=== PATIENT | male | born 1990 | race Two or more races ===

== ENCOUNTER 2020-09-09 15:34 | Inpatient (IN) | payer MEDICAID ==
[~2020-09-09] VITALS: Ht 167.6 cm; Wt 96.4 kg
[2020-09-09 16:33] LABS: MEAN CORPUSCULAR HEMOGLOBIN 29.9 pg (27.5-34.5); MEAN CORPUSCULAR HGB CONC 33.6 g/dL (33.2-36.2); MEAN PLATELET VOLUME 7.9 fL (7.4-10.4); PLATELET COUNT 294 x10^3/uL (130-400); RED BLOOD COUNT 4.99 x10^6/uL (4.38-5.82)
--- NOTE | 2020-09-09 16:38 | NUR ---
PT AWOKE WITH ABDOMINAL PAIN THIS MORNING AND WENT TO HOSPITAL. ABNORMAL LABS OBTAINED FROM [facility]: WBC 37K, CREAT 2.3, KCL 6.9, CO2 6, GAP 26, GLUCOSE 165, LACTIC 12.4, UA KETONES, CT ABDOMEN=ONLY DISTENDED, NEGATIVE COVID. PT RECEIVED 4 LITERS IV BLUIDS, BICARB, CALCIUM, INSULING, ALBULTEROL.
--- NOTE | 2020-09-09 16:40 | NUR ---
PT ALSO RECEVED ZOSYN 3.375 AT [facility]
[2020-09-09 16:46] LABS: ALANINE AMINOTRANSFERASE 63 U/L (12-78); ALBUMIN 3.4 g/dL (3.4-5.0); ANION GAP 12 mmol/L (5-15); CALCIUM 7.9 mg/dL (8.5-10.1); CHLORIDE 106 mmol/L (98-107); CREATININE 1.82 mg/dL (0.7-1.3)
[2020-09-09 16:49] LABS: ALKALINE PHOSPHATASE 91 U/L (45-117); TOTAL PROTEIN 7.5 g/dL (6.4-8.2)
[2020-09-09 17:10] LABS: MD YES
[2020-09-09 17:31] LABS: BAND#(MANUAL) 1.54 x10^3/uL; BANDS%(MANUAL) 6 % (0-7); LYMPHS% (MANUAL) 7 % (22-44); MONOS#(MANUAL) 1.54 x10^3/uL (0.3-2.7); MONOS% (MANUAL) 6 % (2-9); SEG#(MANUAL) 20.82 x10^3/uL (1.8-6.8); SEGS% (MANUAL) 81 % (42-75)
[2020-09-09 17:32] LABS: <RBC MORPHOLOGY> NORMAL
[2020-09-09 17:34] LABS: <PLATELET ESTIMATE> ADEQUATE; <PLT MORPHOLOGY> NORMAL PLT MORPH
[2020-09-09] MEDS: SODIUM CHLORIDE 0.9% 1,000 ML IV SCH ×3 (17:38→22:54)
[2020-09-09 17:47] LABS: MICROSCOPIC AUTO
--- NOTE | 2020-09-09 17:50 | NUR ---
ON PT'S ARRIVAL 800 ML URINE REMOVED FROM EXISITING GALLEGOS COLLECTION BAG. AFTER EMPTYING 600 ML URINE THAT COLLECTED SINCE PT'S ARRIVAL, GALLEGOS REMOVED.
[2020-09-09] MEDS ORDERED: POLYETHYLENE GLYCOL 17 GM PACKET PO PRN (19:00)
[2020-09-09] MEDS ORDERED: ONDANSETRON 2MG/ML, 2ML IVPush PRN (19:00)
[2020-09-09] MEDS ORDERED: BISACODYL 10 MG SUPP PR PRN (19:00)
[2020-09-09] MEDS ORDERED: ACETAMINOPHEN 325 MG TABLET PO PRN (19:00)
[2020-09-09] MEDS ORDERED: PIPERACILLIN/TAZO/PMX 3.375GM 50 ML ONE ×2 (19:15→19:18)
[2020-09-09] MEDS ORDERED: VANCOMYCIN PER PHARMACY MC PRN (19:30)
[2020-09-09] MEDS: PIPERACILLIN/TAZO/PMX 3.375GM 50 ML IV SCH (19:45)
[2020-09-09] MEDS ORDERED: HEPARIN 5,000 UNITS/ML, 1ML ONE (19:51)
[2020-09-09] MEDS: HEPARIN 5,000 UNITS/ML, 1ML SQ SCH (19:57)
--- NOTE | 2020-09-09 20:15 | NUR ---
ABX HUNG AFTER BLOOD CULTURES. PT RESTING ABLE TO URINATE 400 ML POST GALLEGOS REMOVAL, NO OTHER NEEDS AT THIS TIME.
--- NOTE | 2020-09-09 21:24 | NUR ---
REPORT GIVEN TO BRANDON OVIEDO
[2020-09-09 21:49] VITALS: BP 136/90
[2020-09-09] MEDS ORDERED: PHARMACOKINETIC MONITORING MC PRN (22:30)
[2020-09-09] MEDS ORDERED: VANCOMYCIN 2,400 MG in SODIUM CHLORIDE 0.9% 500 ML IV ONE (22:30)
[2020-09-09] MEDS ORDERED: PHARMACOKINETIC CONSULTATION MC ONE (22:30)
[2020-09-09 23:10] LABS: TROPONIN I 0.102 ng/mL (0.000-0.045)
[2020-09-09] MEDS ORDERED: DIPHENHYDRAMINE 50 MG/ML, 1ML ONE (23:41)
[2020-09-10] MEDS ORDERED: DIPHENHYDRAMINE 50 MG/ML, 1ML IVPush ONE
[2020-09-10 02:58] VITALS: BP 106/64
[2020-09-10] MEDS: SODIUM CHLORIDE 0.9% 1,000 ML IV SCH ×5 (03:00→14:22)
[2020-09-10] MEDS: PIPERACILLIN/TAZO/PMX 3.375GM 50 ML IV SCH ×4 (03:18→20:19)
[2020-09-10] MEDS: HEPARIN 5,000 UNITS/ML, 1ML SQ SCH ×3 (03:55→20:19)
[2020-09-10 04:34] LABS: BASOPHILS % (AUTO) 1 % (0-1); EOSINOPHILS % (AUTO) 0 % (1-7); LYMPHOCYTES % (AUTO) 15 % (22-44); MEAN CORPUSCULAR HEMOGLOBIN 29.8 pg (27.5-34.5); MEAN CORPUSCULAR HGB CONC 34.2 g/dL (33.2-36.2); MEAN PLATELET VOLUME 7.9 fL (7.4-10.4); MONOCYTES % (AUTO) 6 % (2-9); NEUTROPHILS % (AUTO) 79 % (42-75); PLATELET COUNT 264 x10^3/uL (130-400); RED BLOOD COUNT 4.54 x10^6/uL (4.38-5.82); RED CELL DISTRIBUTION WIDTH 12.6 % (9.4-14.8)
[2020-09-10 04:40] LABS: ALANINE AMINOTRANSFERASE 47 U/L (12-78); ALBUMIN 2.9 g/dL (3.4-5.0); ANION GAP 7 mmol/L (5-15); CALCIUM 8.2 mg/dL (8.5-10.1); CHLORIDE 112 mmol/L (98-107); CREATININE 1.24 mg/dL (0.7-1.3)
[2020-09-10 04:44] LABS: ALKALINE PHOSPHATASE 75 U/L (45-117); TOTAL PROTEIN 6.7 g/dL (6.4-8.2); TROPONIN I 0.088 ng/mL (0.000-0.045)
[2020-09-10 05:26] LABS: MD SCAN
[2020-09-10 06:30] VITALS: BP 129/80
[2020-09-10] MEDS ORDERED: ACETAMINOPHEN 325 MG TABLET PO PRN (08:30)
[2020-09-10] MEDS ORDERED: POTASSIUM CHLORIDE 20 MEQ TAB.ER.PRT PO ONE (09:00)
[2020-09-10 09:19] VITALS: BP 121/77
[2020-09-10] MEDS: ASPIRIN 325 MG TABLET PO SCH (09:23)
[2020-09-10] MEDS: VANCOMYCIN 2,000 MG in SODIUM CHLORIDE 0.9% 500 ML IV SCH ×2 (11:31→23:44)
[2020-09-10 12:03] VITALS: BP 123/78
[2020-09-10 19:29] VITALS: BP 131/88
[2020-09-10] MEDS: ATORVASTATIN 40 MG TABLET PO SCH (20:18)
[2020-09-11 01:02] VITALS: BP 144/83
[2020-09-11] MEDS: PIPERACILLIN/TAZO/PMX 3.375GM 50 ML IV SCH (03:10)
[2020-09-11] MEDS: SODIUM CHLORIDE 0.9% 1,000 ML IV SCH ×2 (03:13→13:59)
[2020-09-11] MEDS: HEPARIN 5,000 UNITS/ML, 1ML SQ SCH ×3 (03:15→17:46)
[2020-09-11] MEDS: ASPIRIN 325 MG TABLET PO SCH (05:16)
[2020-09-11 05:30] LABS: BASOPHILS % (AUTO) 1 % (0-1); EOSINOPHILS % (AUTO) 7 % (1-7); LYMPHOCYTES % (AUTO) 29 % (22-44); MEAN CORPUSCULAR HEMOGLOBIN 30.1 pg (27.5-34.5); MEAN PLATELET VOLUME 8.5 fL (7.4-10.4); MONOCYTES % (AUTO) 8 % (2-9); NEUTROPHILS % (AUTO) 56 % (42-75); PLATELET COUNT 219 x10^3/uL (130-400); RED BLOOD COUNT 4.24 x10^6/uL (4.38-5.82); RED CELL DISTRIBUTION WIDTH 12.7 % (9.4-14.8)
[2020-09-11 05:39] LABS: MD NO
[2020-09-11 05:39] LABS: CHLORIDE 113 mmol/L (98-107)
[2020-09-11 05:50] LABS: ANION GAP 6 mmol/L (5-15); CALCIUM 8.1 mg/dL (8.5-10.1); CHOL/HDL RATIO 4.2; CHOLESTEROL, TOTAL 113 mg/dL (140-239); CREATININE 1.03 mg/dL (0.7-1.3); HDL CHOL % 24 % (26-37); HDL CHOLESTEROL (DIRECT) 27 mg/dL (40-60); LDL CHOLESTEROL,CALCULATED 27 mg/dL (54-169); TRIGLYCERIDES 293 mg/dL (50-200); VLDL CHOLESTEROL 59 mg/dL (0-25)
[2020-09-11] MEDS ORDERED: MAGNESIUM SULFATE PMX 2GM/50ML 50 ML IV ONE (07:30)
[2020-09-11 07:45] VITALS: BP 139/83
[2020-09-11] MEDS ORDERED: POTASSIUM CHLORIDE 20 MEQ TAB.ER.PRT PO ONE (09:00)
[2020-09-11] MEDS: CARVEDILOL 3.125 MG TABLET PO SCH ×2 (09:26→17:46)
[2020-09-11] MEDS: AMOXICILLIN 500 MG CAPSULE PO SCH ×2 (09:27→20:04)
[2020-09-11] MEDS: DOXYCYCLINE 100MG CAP PO SCH ×2 (09:27→20:04)
[2020-09-11 13:50] VITALS: BP 142/95
[2020-09-11 18:36] VITALS: BP 149/98
[2020-09-11] MEDS: ATORVASTATIN 40 MG TABLET PO SCH (20:04)
[2020-09-12 00:47] VITALS: BP 133/82
[2020-09-12] MEDS: HEPARIN 5,000 UNITS/ML, 1ML SQ SCH ×3 (03:00→18:39)
[2020-09-12] MEDS: SODIUM CHLORIDE 0.9% 1,000 ML IV SCH ×2 (05:49→13:35)
[2020-09-12] MEDS: ASPIRIN 325 MG TABLET PO SCH (05:49)
[2020-09-12 08:06] VITALS: BP 139/86
[2020-09-12] MEDS: AMOXICILLIN 500 MG CAPSULE PO SCH ×2 (10:40→21:08)
[2020-09-12] MEDS: DOXYCYCLINE 100MG CAP PO SCH ×2 (10:41→21:08)
[2020-09-12 12:30] LABS: ANION GAP 3 mmol/L (5-15); CALCIUM 8.3 mg/dL (8.5-10.1); CHLORIDE 110 mmol/L (98-107); CREATININE 0.93 mg/dL (0.7-1.3)
[2020-09-12 13:00] VITALS: BP 128/83
[2020-09-12 21:05] VITALS: BP 142/92
[2020-09-12] MEDS: ATORVASTATIN 40 MG TABLET PO SCH (21:08)
[2020-09-13 00:49] VITALS: BP 133/87
[2020-09-13] MEDS: SODIUM CHLORIDE 0.9% 1,000 ML IV SCH (02:55)
[2020-09-13] MEDS: HEPARIN 5,000 UNITS/ML, 1ML SQ SCH ×2 (03:08→11:49)
[2020-09-13] MEDS: ASPIRIN 325 MG TABLET PO SCH (06:25)
[2020-09-13 07:50] VITALS: BP 129/88
[2020-09-13] MEDS: AMOXICILLIN 500 MG CAPSULE PO SCH (09:12)
[2020-09-13] MEDS: DOXYCYCLINE 100MG CAP PO SCH (09:12)
[2020-09-13] MEDS ORDERED: DOXY100C2 PO (10:08)
[2020-09-13] MEDS ORDERED: AMOX-291 PO (10:08)
[2020-09-13] MEDS ORDERED: ASPI81TA45 PO (10:08)
[2020-09-13] MEDS ORDERED: FENO145T19 PO (10:08)
[2020-09-13] MEDS ORDERED: FENOFIBRATE 145 MG TABLET PO SCH (10:30)
== END 2020-09-13 14:34 | disposition home or self-care (01) | DRG 720 ==
LOC: ED 16:34 → EDIP 18:13 → 5SO 21:35 → 4WST 09-10 19:16 → 5SO 09-11 23:56
PROVIDERS: ADMIT Internal Medicine; ATTEND Internal Medicine
DX: A41.9 Sepsis, unspecified organism (principal); J18.9 Pneumonia, unspecified organism; N17.9 Acute kidney failure, unspecified; R65.20 Severe sepsis without septic shock; I21.A1 Myocardial infarction type 2; E66.9 Obesity, unspecified; E78.1 Pure hyperglyceridemia; E78.5 Hyperlipidemia, unspecified; E87.2 Acidosis; E87.5 Hyperkalemia; E87.6 Hypokalemia; G47.33 Obstructive sleep apnea (adult) (pediatric); I10 Essential (primary) hypertension; I44.1 Atrioventricular block, second degree; J11.00 Influenza due to unidentified influenza virus with unspecified type of pneumonia; Z20.822 Contact with and (suspected) exposure to COVID-19; Z79.899 Other long term (current) drug therapy; Z88.8 Allergy status to other drugs, medicaments and biological substances; Z68.34 Body mass index [BMI] 34.0-34.9, adult
CPT/HCPCS: 36415; 71045; 80048; 80053; 80061; 81001; 82330; 82728; 83605; 83615; 83735; 84145; 84484; 85025; 85379; 86140; 86480; 87040; 87086; 93005; 93306; 96374; 96375; 99285; G0378; J1644; J2543; J3370; J1200; J3475; J7030; J7040; U0003